=== PATIENT | male | born 1990 ===

== ENCOUNTER 2017-04-28 16:24 | Emergency (ER) | payer OTHER ==
[~2017-04-28] VITALS: Ht 180.3 cm; Wt 81.6 kg
[2017-04-28] MEDS ORDERED: MULTIVITAMIN PO (18:33)
[2017-04-28] MEDS ORDERED: PROTEIN SUPPLEMENT (18:33)
[2017-04-28] MEDS ORDERED: NORCO 5-325 TA1 EACH PO (19:09)
== END 2017-04-28 19:15 ==
LOC: EDMED 16:24
DX: S90.32XA Contusion of left foot, initial encounter (principal); Z23 Encounter for immunization; W22.8XXA Striking against or struck by other objects, initial encounter; Y92.69 Other specified industrial and construction area as the place of occurrence of the external cause; Y99.0 Civilian activity done for income or pay